=== PATIENT | female | born 1950 | race Caucasian/White ===

== ENCOUNTER 2018-02-22 05:43 | Day surgery (SDC) | payer OTHER ==
[2018-02-22] MEDS ORDERED: MIDAZOLAM 1 MG/ML 2 ML INJ ×2 (07:45)
[2018-02-22] MEDS ORDERED: FENTAnyl 50 MCG/ML VIAL (07:45)
== END 2018-02-22 12:18 | disposition home or self-care (01) ==
LOC: GIL 05:43
DX: K44.9 Diaphragmatic hernia without obstruction or gangrene (principal); K21.9 Gastro-esophageal reflux disease without esophagitis; K29.60 Other gastritis without bleeding; I10 Essential (primary) hypertension; E78.5 Hyperlipidemia, unspecified
CPT/HCPCS: 43239; 87081

== ENCOUNTER 2018-03-26 07:44 | Day surgery (SDC) | payer OTHER ==
[2018-03-26] MEDS ORDERED: FENTAnyl 50 MCG/ML VIAL (10:22)
[2018-03-26] MEDS ORDERED: MIDAZOLAM 1 MG/ML 2 ML INJ ×2 (10:22)
== END 2018-03-26 15:13 | disposition home or self-care (01) ==
LOC: GIL 07:44
DX: Z12.11 Encounter for screening for malignant neoplasm of colon (principal); K64.8 Other hemorrhoids
CPT/HCPCS: 45378